=== PATIENT | male | born 1935 | race Caucasian/White ===

== ENCOUNTER 2021-02-12 16:29 | Emergency (ER) | payer MEDICARE ==
[~2021-02-12 16:29] MED LIST: HYDROCODON-ACE1 EAC6 PO; LEVOFLOXACIN500 MG PO; METRONIDAZOLE250 MG PO; OMEPRAZOLE20 MG PO
[2021-02-12] MEDS ORDERED: CLEOCIN HCL300 MG PO (20:29)
[2021-02-12] MEDS ORDERED: BACTROBAN OINT22 GM EXT (20:29)
[2021-02-12] MEDS ORDERED: ZOFRAN4 MG PO (20:29)
== END 2021-02-12 20:31 | disposition home or self-care (01) ==
LOC: ER1 16:29
DX: L02.212 Cutaneous abscess of back [any part, except buttock and flank] (principal); R11.0 Nausea; I10 Essential (primary) hypertension
CPT/HCPCS: 10021; 99283

== ENCOUNTER 2021-02-18 12:22 | Emergency (ER) | payer MEDICARE ==
[~2021-02-18 12:22] MED LIST changes: +BACTROBAN OINT22 GM EXT; +CLEOCIN HCL300 MG PO; +ZOFRAN4 MG PO
[2021-02-18 13:05] LABS: HEMOGLOBIN 12.5 gm/dl (14.0-17.5); RED BLOOD COUNT 4.2 M/UL (4.20-5.50); WHITE BLOOD COUNT 13.8 K/UL (4.5-11.0)
[2021-02-18 13:29] LABS: BUN/CREATININE RATIO 20 (0-10)
== END 2021-02-18 18:18 | disposition home or self-care (01) ==
LOC: ER1 12:22
PROVIDERS: Physician Assistant
DX: K62.5 Hemorrhage of anus and rectum (principal); D64.9 Anemia, unspecified; K57.30 Diverticulosis of large intestine without perforation or abscess without bleeding; I73.9 Peripheral vascular disease, unspecified; F17.200 Nicotine dependence, unspecified, uncomplicated; Z79.899 Other long term (current) drug therapy; Z20.822 Contact with and (suspected) exposure to COVID-19
CPT/HCPCS: 80053; 81001; 83690; 85025; 87449; 96374; 96375; 96376; 99285; J2060; J2270; J2405; Q9967; U0002

== ENCOUNTER 2021-05-31 06:42 | Emergency (ER) | payer MEDICARE ==
[2021-05-31 07:17] LABS: HEMOGLOBIN 11.7 gm/dl (14.0-17.5); RED BLOOD COUNT 4.6 M/UL (4.20-5.50); WHITE BLOOD COUNT 14.3 K/UL (4.5-11.0)
[2021-05-31 07:41] LABS: BUN/CREATININE RATIO 21 (0-10)
[2021-05-31] MEDS ORDERED: DOXYCYCLINE HY100 M2 PO (10:58)
== END 2021-05-31 11:48 | disposition home or self-care (01) ==
LOC: ER1 06:42
PROVIDERS: Physician Assistant
DX: J18.9 Pneumonia, unspecified organism (principal); R53.1 Weakness; Z20.822 Contact with and (suspected) exposure to COVID-19; I10 Essential (primary) hypertension; M19.90 Unspecified osteoarthritis, unspecified site
CPT/HCPCS: 70450; 71045; 80053; 81001; 85025; 96374; 99285; J0696; U0002